=== PATIENT | male | born 1960 | race Caucasian/White ===

== ENCOUNTER 2018-09-17 12:02 | Emergency (ER) | payer BC ==
[~2018-09-17] VITALS: Ht 188 cm; Wt 72.6 kg
[2018-09-17 12:19] VITALS: Ht 188 cm; Wt 72.6 kg
[2018-09-17 15:01] VITALS: BP 130/80
== END 2018-09-17 15:01 | disposition home or self-care (01) ==
LOC: ED 12:02
DX: J20.9 Acute bronchitis, unspecified (principal)
CPT/HCPCS: J7620